=== PATIENT | female | born 1970 | race Caucasian/White ===

== ENCOUNTER → 2016-10-25 | Outpatient (CLI) | payer BC ==
--- NOTE | 2016-10-25 16:14 | DX ---
Bilateral Feet, 3 Views History: Bilateral heel and arch pain, right first metatarsophalangeal joint pain. Comparison: Right ankle from April 09, 2009. Findings: Right: No fractures identified. Alignment is normal. Bone mineralization is normal. No erosions are identified. There is no significant degenerative change. There is no focal soft tissue swelling or s oft tissue calcifications. Left: No fractures identified. Alignment is normal. Bone mineralization is normal. No erosions are identified. There is no significant degenerative change. There is no focal soft tissue swelling or so ft tissue calcifications. Impression: No visible etiology for the patient's pain.
== END ==
LOC: BMCIMAGING 10:04
PROVIDERS: ATTEND Podiatrist Foot & Ankle Surgery
DX: M79.671 Pain in right foot (principal); M79.672 Pain in left foot

== ENCOUNTER → 2017-06-29 | Outpatient (CLI) | payer BC | LOC: FIMAGING 09:40 | PROVIDERS: ATTEND Surgery | DX: Z12.31 Encounter for screening mammogram for malignant neoplasm of breast (principal); Z80.3 Family history of malignant neoplasm of breast | CPT/HCPCS: G0202 ==

== ENCOUNTER → 2018-07-03 | Outpatient (CLI) | payer BC | LOC: FIMAGING 07:42 | PROVIDERS: ATTEND Surgery | DX: Z12.31 Encounter for screening mammogram for malignant neoplasm of breast (principal); Z80.3 Family history of malignant neoplasm of breast ==

== ENCOUNTER 2018-10-12 23:12 | Emergency (ER) | payer BC ==
[2018-10-12] MEDS ORDERED: DEXAMETHASONE 10 MG/ML VIAL IVP ONE (23:27)
[2018-10-12] MEDS ORDERED: METOCLOPRAMIDE 10 MG/2 ML VIAL IVP ONE (23:27)
[2018-10-12] MEDS ORDERED: NS 1,000 ML IV ONE (23:27)
[2018-10-12] MEDS ORDERED: HYDROmorphONE/DILAUDID 2 MG/ML INJ IVP ONE (23:29)
[2018-10-12] MEDS ORDERED: DEXAMETHASONE 4 MG/ML VIAL ONE (23:30)
[2018-10-13] MEDS ORDERED: LORazepam 2 MG/ML INJ IVP ONE (00:12)
[2018-10-13] MEDS ORDERED: KETOROLAC 15 MG/1 ML SDV IVP ONE (00:33)
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
[2018-10-13 01:33] VITALS: BP 112/73
== END 2018-10-13 01:33 | disposition home or self-care (01) ==
DX: R51 Headache (principal); E86.9 Volume depletion, unspecified
CPT/HCPCS: 96374; J1100; J1170; J1200; J1885; J2060; J2765

== ENCOUNTER → 2019-04-05 | Outpatient (CLI) | payer BC | LOC: FIMAGING 11:39 ==

== ENCOUNTER → 2019-04-10 | Outpatient (CLI) | payer BC | LOC: FIMAGING 08:06 ==